=== PATIENT | male | born 1980 | race Caucasian/White ===

== ENCOUNTER 2016-11-19 14:21 | Outpatient (CLI) | payer OTHER ==
--- NOTE | 2016-11-19 15:21 | DIAGNOSTIC IMAGING REPORT ---
PROCEDURE: XR KNEE 3 VIEWS - LEFT INDICATION: SEBACEOUS CYST,INFECTED, HYPERLIPDEMIA TECHNIQUE: Three views. COMPARISON: None. FINDINGS: Osseous structures and joint spaces are normal. IMPRESSION: 1. Normal left knee.
== END 2016-11-19 23:00 ==
LOC: XR SRH 14:21
DX: L72.3 Sebaceous cyst (principal); M25.562 Pain in left knee; E78.5 Hyperlipidemia, unspecified